=== PATIENT | male | born 1955 | race American Indian/Alaskan Native ===

== ENCOUNTER 2016-09-23 06:26 | Day surgery (SDC) | payer MEDICAID ==
[2016-09-23] MEDS ORDERED: ECOTRIN PO ONE (06:43)
[2016-09-23] MEDS ORDERED: NACL 0.9% 500 ML 500 ML IV SCH (07:00)
[2016-09-23 07:21] LABS: Basophils % (Auto) 0.6 % (0.0-1.8); Eosinophils % (Auto) 4.1 % (0.0-4.3); Hematocrit 33.2 % (35.5-45.6); Mean Corpuscular HGB Conc 33 % (32-34); Mean Corpuscular Hemoglobin 33 pg (28-32); Mean Corpuscular Volume 99 fl (84-94); Platelet Count 302 K/mm3 (140-440); Red Blood Count 3.34 M/mm3 (3.65-5.03); Red Cell Distribution Width 13.9 % (13.2-15.2); White Blood Count 7.7 K/mm3 (4.5-11.0)
[2016-09-23 07:30] LABS: INR 0.98 (0.87-1.13)
[2016-09-23 07:37] LABS: Anion Gap 15 mmol/L; Calcium 8.8 mg/dL (8.4-10.2); Carbon Dioxide 26 mmol/L (22-30); Glucose 309 mg/dL (75-100); Potassium 4.5 mmol/L (3.6-5.0); Sodium 136 mmol/L (137-145)
[2016-09-23] MEDS ORDERED: HEPARIN/NS 5000 UNIT/500ML(CATH LAB) 1,000 ML IR ONE (08:07)
[2016-09-23] MEDS ORDERED: CALAN ONE (08:07)
[2016-09-23] MEDS ORDERED: HEPARIN 10,000 UNITS/10 ML ONE (08:07)
[2016-09-23] MEDS ORDERED: SUBLIMAZE ONE (08:08)
[2016-09-23] MEDS ORDERED: NITROGLYCERIN SYRINGE 3 ML ONE (08:08)
[2016-09-23] MEDS ORDERED: XYLOCAINE 2% INFILTRATI ONE (08:08)
[2016-09-23] MEDS ORDERED: VERSED ONE (08:08)
[2016-09-23 08:43] LABS: BUN/Creatinine Ratio 16.15; Blood Urea Nitrogen 21 mg/dL (9-20)
--- NOTE | 2016-09-23 10:08 | Discharge Summary ---
Short Stay Discharge Plan Activity: advance as tolerated Weight Bearing Status: Full Weight Bearing Diet: low fat, low cholesterol, low salt, diabetic Wound: keep clean and dry Special Instructions: smoking cessation, no heavy lifting (3 days) Follow up with: MONA ESCALANTE MD [Staff Physician] - 7 Days
--- NOTE | 2016-09-23 10:18 | Cardiac Catherization Report ---
REASON FOR PROCEDURE: Chest pain, unstable angina. PROCEDURE: The patient was prepped and draped in a sterile fashion after informed consent. The right radial artery was entered using the Seldinger technique followed by placement of a 6-Bengali hydrophilic sheath. Left and right coronary angiography was performed using a 3.5 left Bri and a #4 right Bri. The pigtail catheter was used for left ventricular angiography. The catheters were removed, sheath removed, and hemostasis achieved using manual compression. The patient was returned to the postprocedure unit in stable condition. There were no complications. FINDINGS: HEMODYNAMICS: Left ventricle end diastolic pressure was 12. Ascending aortic pressure was 117/67. There was no significant pressure gradient on pullback across the aortic valve. CORONARY ANGIOGRAPHY: The mild irregularities of the left main coronary artery. The left anterior descending artery contained diffuse mild atherosclerosis of its proximal to mid segment. The mid segment was also notable for a focal, 80% stenosis. This was followed by diffuse mild to moderate atherosclerosis of the distal segments of the LAD. The diagonal branches were of very small caliber and contained moderate diffuse atherosclerosis. The proximal to mid AV groove circumflex contained diffuse mild atherosclerosis. The mid obtuse marginal branch then bifurcated into two fairly large terminal branches. The superior sub-branch of the mid obtuse marginal contained subtotal occlusion of its proximal segment, with faint forward flow. The inferior sub-branch also contained a 75%-80% stenosis. The right coronary artery was dominant. This vessel contained a long, ulcerated 50% stenosis of its mid segment. Following this, there was another long 75%-80% stenosis of the distal AV groove segment, beginning from just after the acute margin and extending to the origin of the posterior descending branch. The posterior descending branch itself contained diffuse moderate atherosclerosis. Following that, there was a medium to large terminal posterolateral branch. There was another long, 75% stenosis leading to this terminal branch. The left ventricle is moderately to severely dilated. There was severe left ventricular systolic dysfunction with diffuse hypokinesis. Left ventricular ejection fraction 20%-25%. CONCLUSION: 1. Severe 3-vessel coronary disease including severe mid LAD stenosis. 2. Ischemic cardiomyopathy, severe left ventricular systolic dysfunction, ejection fraction 20%-25%. RECOMMENDATION: Coronary artery bypass surgery will be on optimal revascularization strategy. [facility]# [id number] [place]/[facility]
[2016-09-23] MEDS ORDERED: NACL 0.9% 1000 ML 1,000 ML IV SCH (11:00)
[2016-09-23 13:37] VITALS: BP 166/90
== END 2016-09-23 14:00 | disposition home or self-care (01) ==
LOC: OPU 06:26
PROVIDERS: ATTEND Internal Medicine Cardiovascular Disease
DX: I25.110 Atherosclerotic heart disease of native coronary artery with unstable angina pectoris (principal); E11.40 Type 2 diabetes mellitus with diabetic neuropathy, unspecified; I11.0 Hypertensive heart disease with heart failure; I50.22 Chronic systolic (congestive) heart failure; Z79.4 Long term (current) use of insulin; Z79.82 Long term (current) use of aspirin; Z79.899 Other long term (current) drug therapy; Z87.891 Personal history of nicotine dependence; Z72.89 Other problems related to lifestyle
CPT/HCPCS: 36415; 80048; 82962; 85025; 85610; 85730; 93005; 93010; 93458; 96372; C1894; J1644; J2250; J3010; J7040; J1815; Q9967

== ENCOUNTER 2017-01-21 07:54 | Outpatient (CLI) | payer MEDICAID ==
--- NOTE | 2017-01-21 09:28 | Ultrasound Report ---
ULTRASOUND RENAL INDICATION: Chronic kidney disease. COMPARISON: None similar. FINDINGS: Renal sonography suggests top normal/borderline increased renal cortical echogenicity, somewhat difficult to appreciate on the right secondary to echogenic coarsening of imaged liver. Grossly preserved renal contours. No hydronephrosis. RIGHT KIDNEY measures 10.8 x 4.7 x 5.6 cm with cortical thickness of 1.8 cm. LEFT KIDNEY estimated at 11.2 x 5.1 x 5.5 cm with cortical thickness of 1.8 cm. URINARY BLADDER suboptimally distended and assessed, though grossly unremarkable, in so far seen. CONCLUSION: Slight underlying medical renal disease possible sonographically without acute renal abnormality. Please correlate. Thank you for the opportunity to participate in this patient's care.
--- NOTE | 2017-01-22 10:36 | Vascular Lab Report ---
LOWER EXTREMITY ARTERIAL PHYSIOLOGIC STUDY: REASON FOR EXAM: Peripheral arterial disease. COMMENTS ON THE RIGHT: Ankle brachial index is 0.87. This value is mildly abnormal. Toe brachial index is 0.44. This value is mildly abnormal. Wound healing is likely. Pulse volume recording at the level of the ankle is normal. Exercise testing was not done. COMMENTS ON THE LEFT: Ankle brachial index is 0.79. This value is mildly abnormal. Toe brachial index is 0.9. This value is normal. Wound healing is likely. Pulse volume recording at the level of the ankle is normal. Exercise testing was not done. IMPRESSION: RIGHT: Mild peripheral vascular disease LEFT:Mild peripheral vascular disease
== END 2017-01-21 07:55 | disposition home or self-care (01) ==
LOC: US 07:54
PROVIDERS: ATTEND Internal Medicine Nephrology
DX: I13.0 Hypertensive heart and chronic kidney disease with heart failure and stage 1 through stage 4 chronic kidney disease, or unspecified chronic kidney disease (principal); I50.9 Heart failure, unspecified; N18.3 Chronic kidney disease, stage 3 (moderate); I70.213 Atherosclerosis of native arteries of extremities with intermittent claudication, bilateral legs; E78.00 Pure hypercholesterolemia, unspecified; I25.10 Atherosclerotic heart disease of native coronary artery without angina pectoris; J18.9 Pneumonia, unspecified organism; Z87.891 Personal history of nicotine dependence; N32.89 Other specified disorders of bladder
CPT/HCPCS: 76770; 93922

== ENCOUNTER 2017-02-21 09:29 | Outpatient (CLI) | payer MEDICAID ==
[2017-02-21] MEDS ORDERED: XYLOCAINE TOPICAL 4% TP ONE (09:57)
[2017-02-21] MEDS ORDERED: NACL 0.9% 500 ML IR ONE (11:36)
[2017-02-21] MEDS ORDERED: NACL 0.9% IR PRN (14:28)
== END 2017-02-21 09:30 | disposition home or self-care (01) ==
LOC: WOUND 09:29
PROVIDERS: ATTEND Podiatrist
DX: E11.621 Type 2 diabetes mellitus with foot ulcer (principal); L97.512 Non-pressure chronic ulcer of other part of right foot with fat layer exposed; I11.0 Hypertensive heart disease with heart failure; I50.9 Heart failure, unspecified; I25.10 Atherosclerotic heart disease of native coronary artery without angina pectoris; I25.2 Old myocardial infarction; L84 Corns and callosities; Z87.891 Personal history of nicotine dependence
CPT/HCPCS: 11042; 87075; 87116; 97597; G0463; 87076; 87186

== ENCOUNTER 2017-02-25 09:34 | Outpatient (CLI) | payer MEDICAID ==
--- NOTE | 2017-02-25 11:00 | XRay Report ---
RIGHT FOOT, 3 views: History: Right foot ulcer. There is mild distal soft tissue swelling and mild vascular calcifications. No large area of skin ulceration is appreciated. There is normal bone mineralization. Advanced osteoarthritic changes at the first metatarsal phalangeal joint is noted. No evidence for fracture, bone lesion or bony destruction. IMPRESSION: No acute bony findings are appreciated.
== END 2017-02-25 09:35 | disposition home or self-care (01) ==
LOC: XRAY 09:34
PROVIDERS: ATTEND Podiatrist
DX: L97.519 Non-pressure chronic ulcer of other part of right foot with unspecified severity (principal); M19.071 Primary osteoarthritis, right ankle and foot; M25.871 Other specified joint disorders, right ankle and foot; I11.0 Hypertensive heart disease with heart failure; I50.9 Heart failure, unspecified; J18.9 Pneumonia, unspecified organism; Z87.891 Personal history of nicotine dependence

== ENCOUNTER 2017-02-28 09:07 | Outpatient (CLI) | payer MEDICAID ==
[2017-02-28] MEDS ORDERED: XYLOCAINE TOPICAL 4% TP ONE (09:25)
== END 2017-02-28 09:08 | disposition home or self-care (01) ==
LOC: WOUND 09:07
PROVIDERS: ATTEND Podiatrist
DX: E11.621 Type 2 diabetes mellitus with foot ulcer (principal); L97.512 Non-pressure chronic ulcer of other part of right foot with fat layer exposed; L97.511 Non-pressure chronic ulcer of other part of right foot limited to breakdown of skin; I11.0 Hypertensive heart disease with heart failure; I50.9 Heart failure, unspecified; I25.10 Atherosclerotic heart disease of native coronary artery without angina pectoris; I25.2 Old myocardial infarction; Z87.891 Personal history of nicotine dependence

== ENCOUNTER 2017-03-21 07:53 | Outpatient (CLI) | payer MEDICAID ==
[2017-03-21] MEDS ORDERED: XYLOCAINE TOPICAL 4% TP ONE (08:04)
[2017-03-21] MEDS ORDERED: AD OINTMENT TP ONE (08:55)
[2017-03-22] MEDS ORDERED: AD OINTMENT TP SCH (10:00)
== END 2017-03-21 07:54 | disposition home or self-care (01) ==
LOC: WOUND 07:53
PROVIDERS: ATTEND Podiatrist
DX: E11.621 Type 2 diabetes mellitus with foot ulcer (principal); L97.512 Non-pressure chronic ulcer of other part of right foot with fat layer exposed; I11.0 Hypertensive heart disease with heart failure; I50.9 Heart failure, unspecified; I25.10 Atherosclerotic heart disease of native coronary artery without angina pectoris; I25.2 Old myocardial infarction; Z87.891 Personal history of nicotine dependence
CPT/HCPCS: A6250

== ENCOUNTER 2017-03-28 07:59 | Outpatient (CLI) | payer MEDICAID ==
[2017-03-28] MEDS ORDERED: XYLOCAINE TOPICAL 4% TP ONE ×2 (08:00→08:16)
== END 2017-03-28 08:00 | disposition home or self-care (01) ==
LOC: WOUND 07:59
PROVIDERS: ATTEND Podiatrist
DX: E11.621 Type 2 diabetes mellitus with foot ulcer (principal); L97.512 Non-pressure chronic ulcer of other part of right foot with fat layer exposed; I11.0 Hypertensive heart disease with heart failure; I50.9 Heart failure, unspecified; I25.10 Atherosclerotic heart disease of native coronary artery without angina pectoris; I25.2 Old myocardial infarction; Z87.891 Personal history of nicotine dependence

== ENCOUNTER 2017-04-04 08:00 | Outpatient (CLI) | payer MEDICAID ==
[2017-04-04] MEDS ORDERED: XYLOCAINE TOPICAL 4% TP ONE (08:13)
== END 2017-04-04 08:01 | disposition home or self-care (01) ==
LOC: WOUND 08:00
PROVIDERS: ATTEND Podiatrist
DX: E11.621 Type 2 diabetes mellitus with foot ulcer (principal); L97.512 Non-pressure chronic ulcer of other part of right foot with fat layer exposed; I11.0 Hypertensive heart disease with heart failure; I50.9 Heart failure, unspecified; I25.10 Atherosclerotic heart disease of native coronary artery without angina pectoris; I25.2 Old myocardial infarction; L84 Corns and callosities; Z87.891 Personal history of nicotine dependence

== ENCOUNTER 2017-04-11 08:01 | Outpatient (CLI) | payer MEDICAID ==
[2017-04-11] MEDS ORDERED: XYLOCAINE TOPICAL 4% TP ONE (08:18)
== END 2017-04-11 08:02 | disposition home or self-care (01) ==
LOC: WOUND 08:01
PROVIDERS: ATTEND Podiatrist
DX: E11.621 Type 2 diabetes mellitus with foot ulcer (principal); L97.512 Non-pressure chronic ulcer of other part of right foot with fat layer exposed; I11.0 Hypertensive heart disease with heart failure; I50.9 Heart failure, unspecified; I25.10 Atherosclerotic heart disease of native coronary artery without angina pectoris; I25.2 Old myocardial infarction; Z87.891 Personal history of nicotine dependence

== ENCOUNTER 2017-05-02 08:14 | Outpatient (CLI) | payer MEDICAID ==
[2017-05-02] MEDS ORDERED: XYLOCAINE TOPICAL 4% TP ONE ×2 (08:36→08:45)
== END 2017-05-02 08:15 | disposition home or self-care (01) ==
LOC: WOUND 08:14
PROVIDERS: ATTEND Podiatrist
DX: E11.621 Type 2 diabetes mellitus with foot ulcer (principal); L97.512 Non-pressure chronic ulcer of other part of right foot with fat layer exposed; I11.0 Hypertensive heart disease with heart failure; I50.9 Heart failure, unspecified; I25.10 Atherosclerotic heart disease of native coronary artery without angina pectoris; I25.2 Old myocardial infarction; L84 Corns and callosities; Z87.891 Personal history of nicotine dependence

== ENCOUNTER 2017-05-09 08:00 | Outpatient (CLI) | payer MEDICAID ==
[2017-05-09] MEDS ORDERED: XYLOCAINE TOPICAL 4% TP ONE (08:09)
[2017-05-09] MEDS ORDERED: AD OINTMENT TP ONE (08:24)
[2017-05-09] MEDS ORDERED: AD OINTMENT TP SCH (10:00)
== END 2017-05-09 08:01 | disposition home or self-care (01) ==
LOC: WOUND 08:00
PROVIDERS: ATTEND Podiatrist
DX: E11.621 Type 2 diabetes mellitus with foot ulcer (principal); L97.512 Non-pressure chronic ulcer of other part of right foot with fat layer exposed; I11.0 Hypertensive heart disease with heart failure; I50.9 Heart failure, unspecified; I25.10 Atherosclerotic heart disease of native coronary artery without angina pectoris; I25.2 Old myocardial infarction; Z87.891 Personal history of nicotine dependence
CPT/HCPCS: 97597; A6250

== ENCOUNTER 2017-09-13 07:47 | Emergency (ER) | payer MEDICAID ==
[2017-09-13] MEDS ORDERED: TYLENOL PO ONE (08:45)
[2017-09-13] MEDS ORDERED: TYLENOL ONE (08:46)
[2017-09-13] MEDS ORDERED: PERCOCET 5/325 PO ONE (12:15)
--- NOTE | 2017-09-13 12:18 | Emergency Department Report ---
HPI - General Chief Complaint: Pain General Time Seen by Provider: 09/13/17 12:03 - HPI HPI: 61-year-old AA male presents to the emergency department with a complaint of pain to the left lower extremity from the mid calf down to the heel has been going on since he had an angiogram done on , 2 days ago, with Dr. Tae Ricci. They went into the right groin to evaluate and clear out the left leg. He had the same procedure done 2 weeks prior for the right lower extremity but said he did not have this kind of pain after that was done. He called their office yesterday and was told to take some Tylenol which did not help with his symptoms. The pain worsens with exertion on that leg. He denies any swelling, skin color change, numbness, fever. He has a past medical history as well of hypertension, diabetes. ED Past Medical Hx - Past Medical History Hx Hypertension: Yes Hx Heart Attack/AMI: Yes Hx Congestive Heart Failure: Yes Hx Diabetes: Yes Additional medical history: PSORIASIS - Surgical History Past Surgical History?: Yes Additional Surgical History: right great toe debriedment, Bilateral leg vascular surgery 2018 - Social History Smoking Status: Never Smoker Substance Use Type: None - Medications Home Medications: Home Medications Medication Instructions Recorded Confirmed Last Taken Type Insulin Glargine [Lantus VIAL] 25 units SQ HS 09/23/16 03/06/17 1 Day Ago History ~03/05/17 Insulin Lispro [HumaLOG VIAL] 5 - 20 units SQ BID PRN 09/23/16 03/06/17 1 Day Ago History ~03/05/17 Aspirin EC [Aspirin Enteric Coated 81 mg PO DAILY #30 tablet 03/10/17 Unknown Rx TAB] AtorvaSTATin [Lipitor] 40 mg PO HS #30 tablet 03/10/17 Unknown Rx ISOSORBIDE MONOnitrate [Imdur ER] 30 mg PO DAILY #30 tablet 03/10/17 Unknown Rx Metoprolol [Lopressor TAB] 50 mg PO DAILY #30 tablet 03/10/17 Unknown Rx Torsemide [Demadex] 10 mg PO DAILY #30 tablet 03/10/17 Unknown Rx HYDROcodone/APAP 5-325 [Mcallen 1 each PO Q4H PRN #25 tablet 09/13/17 Unknown Rx 5/325] ED Review of Systems ROS: Stated complaint: LEG/FOOT PAIN Other details as noted in HPI Comment: All other systems reviewed and negative Constitutional: denies: chills, fever Eyes: denies: eye pain, eye discharge, vision change ENT: denies: ear pain, throat pain Respiratory: denies: cough, shortness of breath, wheezing Cardiovascular: denies: chest pain, palpitations Gastrointestinal: denies: abdominal pain, nausea, diarrhea Genitourinary: denies: urgency, dysuria Musculoskeletal: myalgia. denies: back pain Skin: denies: rash, lesions Neurological: denies: headache, weakness, paresthesias Physical Exam - Physical Exam Vital Signs: Vital Signs 09/13/17 09/13/17 08:24 08:39 Temperature 98.2 F 98.2 F Pulse Rate 71 71 Respiratory 16 Rate Blood Pressure 129/68 Blood Pressure 129/68 [Right] O2 Sat by Pulse 98 98 Oximetry Physical Exam: GENERAL: The patient is well-developed well-nourished. HENT: Normocephalic. Atraumatic. Patient has moist mucous membranes. EYES: Extraocular motions are intact. Pupils equal reactive to light bilaterally. NECK: Supple. Trachea is midline. CHEST/LUNGS: Clear to auscultation. There is no respiratory distress noted. HEART/CARDIOVASCULAR: Regular. There is no tachycardia. There is no murmur. ABDOMEN: Abdomen is soft, nontender. Patient has normal bowel sounds. There is no abdominal distention. SKIN: Skin is warm and dry. NEURO: The patient is awake, alert, and oriented. The patient is cooperative. The patient has no focal neurologic deficits. The patient has normal speech. MUSCULOSKELETAL: Patient has some reproducible tenderness to palpation to the left lower extremity from the mid calf down to about the heel but no obvious deformity. There is no limitation range of motion. It is difficult to palpate the left foot pedal pulses but it is audible with pencil Doppler. Cap refill less than 3 seconds. ED Course Vital Signs 09/13/17 09/13/17 08:24 08:39 Temperature 98.2 F 98.2 F Pulse Rate 71 71 Respiratory 16 Rate Blood Pressure 129/68 Blood Pressure 129/68 [Right] O2 Sat by Pulse 98 98 Oximetry ED Medical Decision Making - Lab Data Result diagrams: 09/13/17 12:16 09/13/17 12:16 - Medical Decision Making Patient has been dealing with some left lower extremity pain since having an angiogram done a few days ago. There is no swelling, skin color change. It is hard to palpate pulses but is audible with pencil Doppler. Labs are mostly unremarkable except for hyperglycemia with a blood sugar of about 330 but no signs of diabetic ketoacidosis. The patient was seen in the emergency department by the vascular surgeon, Dr. De La Torre, who did some arterial studies on the patient and found that he did not have any occlusion. There does not appear to be any arterial insufficiency. He believes that the patient's pain may be secondary to the positioning of the leg during the angiogram. Dr. De La Torre has written the patient for some pain medication and encouraged follow-up outpatient. - Differential Diagnosis tendonitis, PAD, cellulitis, DVT Critical Care Time: No Critical care attestation.: If time is entered above; I have spent that time in minutes in the direct care of this critically ill patient, excluding procedure time. ED Disposition Clinical Impression: Pain of left calf, Left leg pain, History of femoral angiogram, Hyperglycemia, Renal insufficiency Disposition: TO HOME OR SELFCARE Is pt being admited?: No Condition: Stable Instructions: Arthralgia (ED), Diabetic Hyperglycemia (ED), Impaired Kidney Function (ED) Additional Instructions: Please follow-up with your primary care physician. Please follow up with the vascular physicians. Check your blood sugar at home. Continue with your diabetes/insulin regiment. Try and stay away from foods that are high in sugar, carbohydrates and starches. Keep a blood sugar log. Return to the emergency Department with any worsening of your symptoms or any acute distress. Prescriptions: HYDROcodone/APAP 5-325 [Mcallen 5/325] 1 each PO Q4H PRN #25 tablet PRN Reason: Pain Referrals: SUKHWINDER PEDROZA MD [Primary Care Provider] - 3-5 Days TAE RICCI MD [Staff Physician] - 3-5 Days Time of Disposition: 15:43
[2017-09-13 12:45] LABS: Basophils % (Auto) 0.4 % (0.0-1.8); Eosinophils # (Auto) 0.2 K/mm3 (0.0-0.4); Eosinophils % (Auto) 2.7 % (0.0-4.3); Hemoglobin 13.1 gm/dl (11.8-15.2); Lymphocytes % (Auto) 34.4 % (13.4-35.0); Mean Corpuscular HGB Conc 33 % (32-34); Mean Corpuscular Hemoglobin 32 pg (28-32); Mean Corpuscular Volume 98 fl (84-94); Monocytes # (Auto) 0.7 K/mm3 (0.0-0.8); Monocytes % (Auto) 7.8 % (0.0-7.3); Platelet Count 194 K/mm3 (140-440)
[2017-09-13 13:00] LABS: Calcium 8.7 mg/dL (8.4-10.2)
[2017-09-13] MEDS ORDERED: HumuLIN R SUB-Q ONE (14:11)
--- NOTE | 2017-09-13 14:52 | Consultation ---
History of Present Illness - Reason for Consult Consult date: 09/13/17 LLE pain - History of Present Illness 61-year-old -[place] male with short distance severe claudication (less than 25 feet) status post right lower extremity revascularization and left lower extremity revascularization by Dr. Ricci presents to the emergency department with a complaint of pain to the left lower extremity from the mid calf down to the ankle. The pain started after he had an angiogram 2 days ago. The angiogram involved with posterior tibial access and right common femoral artery access in the patient's left leg supported by a bowl during the length of the procedure which took a few hours. He now has tenderness to palpation in the left calf area where the bowl supported his leg. Both feet warm without ulcers. No mottling of the feet. Motor function intact. No paresthesias of the feet. No rest pain. When he tries to stand he experiences pain in his calf area. He describes this pain as feeling different than his previous claudication. Palpable right dorsalis pedis. Nonpalpable left pedal pulses, but dopplerable left posterior tibial pulse with weakly dopplerable left dorsalis pedis. Past History Past Medical History: acute ID, CAD, diabetes, hypertension, PVD, other Past Surgical History: Other (revasc RLE and LLE , endovascular ; R toe debridement) Social history: denies: smoking, IV drug use Family history: no significant family history Medications and Allergies Allergies Allergy/AdvReac Type Severity Reaction Status Date / Time No Known Allergies Allergy Verified 02/11/16 14:46 Home Medications Medication Instructions Recorded Confirmed Last Taken Type Insulin Glargine [Lantus VIAL] 25 units SQ HS 09/23/16 03/06/17 1 Day Ago History ~03/05/17 Insulin Lispro [HumaLOG VIAL] 5 - 20 units SQ BID PRN 09/23/16 03/06/17 1 Day Ago History ~03/05/17 Aspirin EC [Aspirin Enteric Coated 81 mg PO DAILY #30 tablet 03/10/17 Unknown Rx TAB] AtorvaSTATin [Lipitor] 40 mg PO HS #30 tablet 03/10/17 Unknown Rx ISOSORBIDE MONOnitrate [Imdur ER] 30 mg PO DAILY #30 tablet 03/10/17 Unknown Rx Metoprolol [Lopressor TAB] 50 mg PO DAILY #30 tablet 03/10/17 Unknown Rx Torsemide [Demadex] 10 mg PO DAILY #30 tablet 03/10/17 Unknown Rx Review of Systems All systems: negative (see HPI) Exam - Constitutional Vitals: Temp Pulse Resp BP Pulse Ox 98.2 F 71 16 129/68 98 09/13/17 08:39 09/13/17 08:39 09/13/17 08:24 09/13/17 08:39 09/13/17 08:39 General appearance: Present: no acute distress - EENT Eyes: Present: EOM intact ENT: hearing intact - Respiratory Respiratory effort: normal - Extremities Extremities: normal temperature, normal color Extremity abnormal: other (see HPI) - Psychiatric Psychiatric: appropriate mood/affect, cooperative Results - Labs CBC & Chem 7: 09/13/17 12:16 09/13/17 12:16 Labs: Abnormal lab results 09/13/17 09/13/17 Range/Units 12:16 12:16 MCV 98 H (84-94) fl Becker % (Auto) 7.8 H (0.0-7.3) % Sodium 135 L (137-145) mmol/L Chloride 96.8 L (98-107) mmol/L BUN 28 H (9-20) mg/dL Creatinine 1.6 H (0.8-1.5) mg/dL Glucose 330 H (75-100) mg/dL - Imaging and Cardiology Venous US: report reviewed, image reviewed (arterial and venous reviewed, ADAL reviewed) Assessment and Plan 61-year-old male with multiple medical problems including peripheral vascular disease with short distance claudication. No physical exam signs of ischemia of the foot which is warm and well-perfused. No rest pain. The right dorsalis pedis has a palpable pulse. The left pedal pulses are dopplerable. Noninvasive studies ordered. No DVT. Right palpable DP velocity 55.5 cm/s biphasic. Left posterior tibial 55.8 cm/s monophasic. ADAL RLE 1.0 ; ADAL LLE 1.1. No objective signs of ischemia. Suspect left calf pain related to long procedure time and calf supported by a bowl during revascularization. Provided [place] and reassure. Will followup with [facility] next week if pain does not improve. Discussed in depth with patient and his .
[2017-09-13 15:50] VITALS: BP 158/91
--- NOTE | 2017-09-17 11:21 | Vascular Lab Report ---
LOWER EXTREMITY ARTERIAL DUPLEX: REASON FOR EXAM: Left lower cavity pain after revascularization. COMMENTS ON THE RIGHT: A limited study with the right lower extremity. Triphasic waveforms are noted at the anterior tibial artery. Biphasic waveforms are noted at the posterior tibial artery. These findings are consistent with mild arterial occlusive disease. COMMENTS ON THE LEFT: Triphasic waveforms are seen proximally. Monophasic waveforms are seen distally. Tibial artery occlusive disease is identified.. Scattered plaque is seen throughout. Findings are consistent with abnormal perfusion. No acute lesions are seen. IMPRESSION: RIGHT: Mildly abnormal arterial flow. LEFT:No evidence of acute proximal arterial occlusion. Tibial vessels have monophasic flow.
--- NOTE | 2017-09-17 11:23 | Vascular Lab Report ---
LOWER EXTREMITY ARTERIAL PHYSIOLOGIC STUDY: REASON FOR EXAM: Peripheral arterial disease. COMMENTS ON THE RIGHT: Ankle brachial index is 0.98. This value is normal. Pulse volume recording at the level of the ankle is mild abnormal. Exercise testing was not done. COMMENTS ON THE LEFT: Ankle brachial index is 1.07. This value is normal. Pulse volume recording at the level of the ankle is mild abnormal. Exercise testing was not done. IMPRESSION: RIGHT: Ankle-brachial index is within normal limits. Pulse volume recording is mildly abnormal. LEFT:Ankle-brachial index is within normal limits. Pulse volume recording is mildly abnormal.
--- NOTE | 2017-09-17 11:36 | Vascular Lab Report ---
Left Lower Extremity Venous Duplex Study: Reason for Exam: left calf pain. Comments on the Right: A limited duplex study was done of the proximal veins of the right lower extremity. All veins visualized are freely compressible without evidence of internal echogenicity. Flow is spontaneous and phasic throughout. No evidence of acute or chronic thrombus is seen in any of the vessels visualized. Comments on the Left: All veins visualized are freely compressible without evidence of internal echogenicity. Flow is spontaneous and phasic throughout. No evidence of acute or chronic thrombus is seen in any of the vessels visualized. Impression: No evidence of acute or chronic deep venous thrombosis in the left lower extremity.
== END 2017-09-13 15:55 | disposition home or self-care (01) ==
LOC: ED 07:47
DX: N28.9 Disorder of kidney and ureter, unspecified (principal); I11.0 Hypertensive heart disease with heart failure; I50.9 Heart failure, unspecified; I25.2 Old myocardial infarction; Z79.4 Long term (current) use of insulin
CPT/HCPCS: 36415; 80048; 82550; 85025; 93922; 99284